=== PATIENT | female | born 2000 | race Caucasian/White ===

== ENCOUNTER → 2019-01-01 10:39 | Outpatient (CLI) | payer MEDICAID, SELFPAY ==
[2018-08-25 16:40] VITALS: BMI 26.0
--- NOTE | 2019-01-01 10:43 | CT_ITS ---
STUDY: CT MAXILLOFACIAL SINUSES REASON FOR EXAM: Female, 18 years old. Sinusitis. RADIATION DOSAGE (If Supplied By Facility): CTDIvol = ( 33.06 ) mGy, DLP = ( 817.32 ) mGycm TECHNIQUE: The patient was scanned in a multi detector CT scanner. High resolution axial imaging was performed without the administration of intravenous contrast material. Sagittal and coronal images were reconstructed. Individualized dose optimization techniques were used for this CT. COMPARISON: None. FINDINGS: FRONTAL SINUSES: Normal aeration, without mucosal inflammatory disease. ETHMOIDAL SINUSES: Normal aeration, without mucosal inflammatory disease. MAXILLARY SINUSES: Normal aeration, without mucosal inflammatory disease. SPHENOIDAL SINUSES: Normal aeration, without mucosal inflammatory disease. There is patency of the bilateral maxillary infundibuli with normal uncinate processes, ethmoid bullae, and hiatus semilunaris. Normal bilateral middle turbinates. Normal bilateral inferior turbinates. Normal midline nasal septum. There is patency of the bilateral nasal airways. The visualized osseous structures are normal. The visualized bilateral orbital contents are normal. CT/Sinus/Facial Bone IMPRESSION: Normal CT examination of the maxillofacial sinuses. Electronically Signed: Mariano Rollins, at 11:12 EDT Tel , Service support ,
== END ==
PROVIDERS: Referring Provider Otolaryngology; Visit Provider Otolaryngology
DX: J32.9 Chronic sinusitis, unspecified (principal)
CPT/HCPCS: 70486

== ENCOUNTER 2019-04-07 07:36 | Emergency (ER) | payer SELFPAY ==
[2018-08-25 16:40] VITALS: BMI 26.0
[2019-04-07 07:36] VITALS: BP 129/88; PULSE 76; RESP 14; TEMP 36.9; O2SAT 96; BMI 27.6
--- NOTE | 2019-04-07 07:46 | ED.VISSUMM ---
- ER Visit Summary Date of Service: 04/07/19 Chief Complaint: Epistaxis History of Present Illness Patient presents with right nare nosebleed that started a few days ago. She has no fever chills cough or congestion. She has a history of allergies, she constantly picks at her nose according to her mom. The bleed started about 25 minutes ago but it subsided prior to emergency department arrival. She does not feel lightheaded she does not have a history of chronic bleeding. Past medical history: Multiple nosebleeds. Seasonal allergies. Allergies reviewed unremarkable Social history unremarkable Review of systems: ENT as epistaxis as above General no fever or chills Cardiac no chest pain Respiratory no shortness of breath Skin no rash Neurological no weakness. All other systems reviewed and negative Physical Examination: Not appear in acute distress. Moist mucous membranes, right anterior nasal plexus shows diffuse punctate excoriations about 7 mm in diameter. There is no on specific spot. No C-spine tenderness supple neck. Regular rate No respiratory distress Moves all extremities without any difficulty or pain. Skin does not show any obvious rashes or lesions, no trauma. Alert no gross focal deficit Emergency Department Course and Treatment: I had a long discussion with the patient, at this time I am afraid that if I cauterize a big area it will bleed around it. She does not wish to have a nasal balloon, she stopped bleeding and is asymptomatic I believe it is reasonable to just allow her to heal on her own to use Vaseline routinely and if it bleeds again to put pressure for 15 minutes. She understands this I will discharge her in stable condition. Disposition: Discharge stable condition Impression: [Epistaxis] This note was generated with [employer] dictation software. It may contain incorrect words, spelling, and punctuation that were not noted in review of the chart prior to signing ED Disposition - Plan for ED Patient: Disposition: Home or Assisted Living Diagnosis: Epistaxis Instructions: Nosebleed Referrals: Care Physician,No Primary [Primary Care Provider] - 3-5 Days - History of Present Illness History of Present Illness: Date of Service: 04/07/19 Chief Complaint: [] History of Present Illness: The patient is a 18 F [] - Summary of Care Summary of Care: Physical Examination: [] Test Results: [] Emergency Department Course: [] Treatment Plan: [] Disposition: [] Impression: [] ER Physician Documentation Date of Service: 04/07/19 Method of Arrival: [] Chief Complaint: [] History of Present Illness: The patient is a 18 F [] Review of Systems: [] Physical Examination: [] Test Results: [] Emergency Department Course: [] Treatment Plan: [] Disposition: [] Impression: []
== END 2019-04-07 08:51 | disposition home or self-care (01) ==
LOC: ED 08:05
PROVIDERS: Emergency Provider Emergency Medicine
DX: R04.0 Epistaxis (principal)
CPT/HCPCS: 99282

== ENCOUNTER 2020-08-31 16:27 | Emergency (ER) | payer MEDICAID, SELFPAY ==
[2020-08-31 16:28] VITALS: BP 116/76; PULSE 51; RESP 17; TEMP 36; O2SAT 99; BMI 18.1
--- NOTE | 2020-08-31 16:49 | EKG12_ITS ---
Test Reason : CHEST TIGHTNESS Blood Pressure : / mmHG Vent. Rate : 043 BPM Atrial Rate : 043 BPM P-R Int : 104 ms QRS Dur : 092 ms QT Int : 454 ms P-R-T Axes : 076 077 048 degrees QTc Int : 383 ms Marked sinus bradycardia with short GA Abnormal ECG Confirmed by FRANCISCO J PINTO, MAURICE ([id number]), offline editor LISS KONG ([id number]) on 09/03/2020 10:20:50 AM Referred By: GIANA Confirmed By:MAURICE MARX MD
--- NOTE | 2020-08-31 17:10 | RAD_ITS ---
STUDY: X-RAY CHEST REASON FOR EXAM: Female, 20 years old. PT SENT TO ED BY COUNSELOR FOR EATING DISORDERS, CONCERNED FOR RECENT WEIGHT LOSS, AND TIGHTNESS IN CHEST. TECHNIQUE: Single AP portable view of the chest. COMPARISON: None. FINDINGS: The lungs are clear and expanded. There is no demonstrated pleural abnormality. Normal size heart. Normal mediastinum and laurie. Normal visualized pulmonary arteries. Normal visualized aortic arch and descending thoracic aorta. Mild dextro scoliosis lower thoracic spine. Normal visualized ribs, clavicles, and shoulders. There is no demonstrated abnormality of the visualized soft tissue structures of the upper abdomen. RAD/Chest 1 View (Portable) IMPRESSION: No active disease. Electronically Signed: Gilson Mota MD at 17:32 EST Tel , Service support ,
[2020-08-31 17:12] LABS: Absolute Lymphocyte Count 1.36 X10^3/uL (0.83-4.51); Absolute Neutrophil Count 2.2 X10^3/uL (2.0-7.7); Basophil# 0.06 X10^3/uL; Basophil% 1.5 % (0-1); Eosinophil# 0.04 X10^3/uL; Hematocrit 43.2 % (37-47); Hemoglobin 14.1 g/dL (12.0-15.0); Lymphocyte # 1.36 X10^3/ul (4.0); Lymphocyte % 33.8 % (19-41); Mean Corp Hgb Conc 32.6 g/dL (32-36); Mean Corpuscular Hgb 31.1 pg (27.0-32.0); Mean Corpuscular Volume 95.4 fL (81-99); Mean Platelet Vol. 10.1 fl (6.2-12.0); Monocyte# 0.41 X10^3/uL; Monocyte% 10.2 % (0-10); NRBC Flagged by Analyzer 0 % (0-5); Neutrophil # 2.15 X10^3/uL (2.7-7.7); Neutrophil % 53.5 % (47-70); Platelet Count 243 K/mm3 (150-450); RBC Distribution Width CV 12.2 % (11.6-14.6); RBC Distribution Width SD 43.1 fl (35.1-43.9); Red Blood Count 4.53 M/mm3 (4.2-5.4)
[2020-08-31 17:38] LABS: Internal QC Validated? YES +Cl - CLEAR BKGD; Pregnancy, Serum, hCG Quali. NEGATIVE Negative
[2020-08-31 17:40] LABS: ALB/GLOB Ratio 1.8 RATIO (0.9-2.4); AST(SGOT) 24 U/L (15-37); Alanine Aminotransfer ALT/SGPT 39 U/L (13-56); Albumin, Serum 5.3 g/dL (3.2-5.0); Alkaline Phosphatase 50 U/L (45-117); Anion Gap 6 (5-15); BUN 16 mg/dL (7-18); BUN/Creat Ratio 17.8 RATIO (10-20); Calcium,Total 9.4 mg/dL (8.5-10.1); Chloride 106 mmol/L (98-107); EST Glomerular Filtration Rate 83 mL/min (>60); Est Glom Filt Rate - Afr Amer 101 mL/min (>60); Globulin 2.9 g/dL (2.2-4.2); Glucose 80 mg/dL (74-106); Magnesium 2.2 mg/dL (1.6-2.6); Phosphorus 3.4 mg/dL (2.5-4.9); Potassium 3.7 mmol/L (3.5-5.1); Protein, Total 8.2 g/dL (6.4-8.2); Sodium Level 140 mmol/L (136-145); Thyroid Stim Hormone (TSH) 1.39 uIU/mL (0.358-3.74)
--- NOTE | 2020-08-31 17:45 | CM.ED ---
SOCIAL WORK Informant: Dr. Mccray Reason for Consult: Mental Health-Patient with eating disorder Chief Compliant: Patient sent in by counselor for medical examination due to eating disorder. Patient reports 40lbs weight loss since January 2020 and increased tightness in chest. Met with patient in room. Introduced role and reason for referral. Patient states follows with [facility] in [place], [place]. Patient reports had a 40lbs weight loss since January 2020. Patient reports history of anxiety and depression. Patient states is not currently taking medication. Patient states eats 2 meals a day and I drink a lot of coffee and energy drinks. Patient states counselor wanted her admitted to [facility] and patient refused. Patient denies any suicidal or homicidal ideation. Patient states, they wanted me checked out for medical needs. Patient with bradycardia. Patient gave permission for this worker to follow up with her mother for safety in home going. Call to patient's mother, Diamante. Mother voiced concerns for patient's health and eating disorder. Mother reports was just informed today by patient's counselor that patient was suffering from an eating disorder. Mother states patient had refused help at inpatient level at this time. Mother denies any concerns with patient returning home with family. Updated Dr. Mccray on the above. Plan: Home with follow up with counseling services that patient has already established. Sebastain Lincoln, DUAL HOSE CEMENTER, MARKETING BUSINESS ANALYST
--- NOTE | 2020-08-31 18:10 | ED.DCSUM_ITS ---
- ER Visit Summary Date of Service: 08/31/20 Chief Complaint: Anorexia History of Present Illness: The patient is a 20 F with a history of anorexia. She was for to the ED by her counselor. Patient had a 40 pound weight loss. She has not been eating or drinking much. She is using energy drinks. Her coun selor wanted her to go to [facility] but she refused. She was agreeable to coming to this facility for evaluation. Overall, she feels well. She does get some chest tightness which she attributes to anxiety. She has no other new or concerning symptoms. She denies any suicidal or homicidal thoughts. Physical Examination: Heart rate 51. Otherwise vitals unremarkable. Patient is alert and oriented. No acute distress. She is calm and cooperative. She denies suicidal or homicidal thoughts. Heart exam is bradycardic but regular. Lungs are clear. Abdomen soft. Skin appears normal. Test Results: EKG showed sinus rhythm at a rate of 43. No acute changes. White count 4.0. Otherwise CBC, CMP, troponin, hCG, TSH, mag, phos all normal. Chest x-ray reviewed by the radiologist and me, was normal. Emergency Department Course and Treatment: Patient was placed on a monitor. Work-up was unremarkable. She has bradycardia in the 40s and 50s. She denies any history of this. This was discussed with cardiology, Dr. Michel. He advised an ambulation trial. If she improved and had no symptoms, she can follow-up as an outpatient. Patient was ambulated and had a heart rate of 57. She had no dizziness, chest pain, shortness of breath, or symptoms whatsoever. We will refer her to outpatient follow-up with her primary care doctor. Patient is not suicidal or homicidal. She did speak with social work and allowed social work to speak with her mom. They concerned about the weight loss, but not concerned about her safety currently. She would like to follow-up as an outpatient for care of her anorexia. Patient was advised she can return right away if she has new or worsening symptoms, any thoughts of suicide, or any other concerns. Treatment Plan: Follow-up with counselor and primary care, return for any problems right away Disposition: Discharge Impression: Anorexia, bradycardia This note was generated with [employer] software. It may contain incorrect words, spelling, and punctuation that were not noted in review of the chart prior to signing ED Disposition - Plan for ED Patient: Referrals: SANDRA FERRARO [Other]
--- NOTE | 2020-08-31 18:14 | ED.DEP ---
ED Disposition - Plan for ED Patient: Instructions: ED Anorexia Nervosa Referrals: SANDRA FERRARO [Other] Counseling,Center [GROUP OF PHYSICIANS] -
[2020-08-31 18:31] VITALS: BP 100/73
== END 2020-08-31 18:32 | disposition home or self-care (01) ==
LOC: ED 17:16
PROVIDERS: Emergency Provider Emergency Medicine
DX: R63.0 Anorexia (principal); R00.1 Bradycardia, unspecified; R63.4 Abnormal weight loss; R07.89 Other chest pain; J45.909 Unspecified asthma, uncomplicated; Z72.0 Tobacco use
CPT/HCPCS: 71045; 80053; 83735; 84100; 84443; 84484; 84703; 85025; 93005; 99284; A4216

== ENCOUNTER 2021-03-14 10:22 | Emergency (ER) | payer MEDICAID, SELFPAY ==
[2021-03-14 10:24] VITALS: BP 113/81; PULSE 86; RESP 17; TEMP 36.5; O2SAT 98
[2021-03-14] MEDS: Mag Hydrox/Al Hydrox/Simeth 30 ML UDC PO (10:56)
--- NOTE | 2021-03-14 10:58 | EDS_ITS ---
HPI HPI - GI History of Present Illness Chief Complaint: Abd Pain Informant: patient Abdominal Pain/Flank Pain Onset: Yesterday Context: Sudden Onset Timing: Continuous Quality: Aching and Burning Location: Epigastric Current Severity: Mild Maximum Severity: Moderate Worsened by: - (Worse with palpation.) Relieved by: Nothing Nausea/Vomiting/Emesis GI Symptom: Positive for Nausea; Negative for Vomiting Onset: Yesterday Diarrhea/Melena/Hematochezia GI Symptom: Negative for Diarrhea, Melena and Hematochezia Associated Symptoms Associated Symptoms: Negative for Dysuria, Frequency, Hematuria and Urgency Narrative Narrative: Patient is a 20-year-old female presents with epigastric discomfort scribed as a dull burning sensation. Started yesterday. She denies intolerance to greasy or fried foods. She denies black or maroon stool. She denies history of reflux, hiatal hernia or peptic ulcer disease. She denies cardiac respiratory symptoms. She was seen at urgent care and sent to the emergency room because of concern for gallbladder disease. Prior similar symptoms: No Recent Illness/Hospitalization: No PFSH PFSH Medical History Asthma Back pain Benign joint hypermobility syndrome Knee pain Limb weakness Neck pain Severe headache Shoulder pain unexplained bruises Home Medications hydroxyzine pamoate [Vistaril] 25 mg PO TID PRN 03/14/21 [History Last Taken Unknown] lamotrigine [Lamictal] 150 mg PO DAILY 03/14/21 [History Last Taken Unknown] omeprazole 20 mg PO DAILY #15 capsule 03/14/21 [Rx Last Taken Unknown] Allergy/AdvReac Type Severity Reaction Status Date / Time No Known Allergies Allergy Verified 03/14/21 10:22 Family History Other Asthma Jordyn-Danlos syndrome Heart disease Surgical History History of appendectomy Social History (Updated 03/14/21 @ 10:[address] Matt Purcell MD) household members: none Smoking Status: Light Smoker (<10/day) Electronic Cigarette Use: with nicotine alcohol intake: never substance use type: does not use ROS ROS ED Constitutional Constitutional ED: Denies chills, fever(s), subjective, sweats or weight loss ENT ENT ED: Denies ear pain, rhinorrhea or sore throat Cardiovascular Cardiovascular: Denies chest pain, palpitations or racing heartbeat Respiratory/Chest Respiratory/Chest: Denies cough, dyspnea, dyspnea on exertion or sputum Gastrointestinal Gastrointestinal: Reports abdominal pain and nausea; Denies constipation, diarrhea, melena or vomiting Genitourinary Genitourinary ED: Denies dysuria, hematuria or urinary frequency Musculoskeletal Musculoskeletal: Denies arthralgias, back pain, myalgias or neck pain Integumentary Denies rash Neurologic Neurologic: Denies paresthesias or weakness EXAM Physical Exam Const Vital Signs: 03/14/21 10:24 Temperature 97.7 F L Temperature Source Temporal Pulse Rate 86 Respiratory Rate 17 Blood Pressure 113/81 H Blood Pressure Mean 91 Pulse Ox 98 Oxygen Delivery Method Room Air Positive well nourished and well developed General Appearance ED: well developed HEENT Reports moist mucous membranes normocephalic and atraumatic Eyes PERRL and EOMs intact bilaterally General Eye ED: Negative for pale conjunctiva or scleral icterus Neck no lymphadenopathy and supple Resp normal respiratory effort and clear to auscultation bilaterally Cardio regular rate, regular rhythm, S1 normal heart sound, S2 normal heart sound and no murmurs GI non-distended and no masses; Negative for non-tender Inspection: other Other Details: Negative clinical Hardin sign Auscultation: normoactive bowel sounds and hypoactive bowel sounds Palpation: soft, tender epigastric and guarding other (Epigastrium); Negative for rigid, hepatomegaly, splenomegaly or rebound tenderness present Back/Spine Lumbar Spine / Lower Back: Negative for lumbar spinal tenderness Extremity full ROM General Extremety ED: Negative for edema or tenderness General Extremity: Negative for edema Neuro CN's II-XII intact bilaterally Sensorium / Orientation: alert, oriented to person, oriented to place and oriented to time Psych mental status grossly normal and thought process normal Skin no wounds Lesions: no lesions Rashes: no rashes MDM MDM MDM Narrative Medical decision making narrative: Patient was treated with GI cocktail. Based on her history and physical there is little concern for biliary disease at this time. Patient was reassessed at 1138. She had marked improvement. She is no longer tender in the epigastric area. Discharge Plan Triage Chief Complaint: Abd Pain ED Provider: Román Purcello Dx/Rx/DC Orders Clinical Impression: Acute epigastric pain Instructions: ED Epigastric Pain Uncertain Cause Prescriptions: New omeprazole [omeprazole] 20 MG capsule 20 mg PO DAILY Qty: 15 RF: 0 No Action lamotrigine [Lamictal] 150 mg Tablet 150 mg PO DAILY RF: 0 hydroxyzine pamoate [Vistaril] 25 mg Capsule 25 mg PO TID PRN (Reason: Anxiety) RF: 0 Primary Care Provider: Aleksandr Hill NP Referrals: Aleksandr Hill NP, [employer] [Primary Care Provider] - 1-2 Weeks Disposition Disposition: Home, Self Care
[2021-03-14 12:05] VITALS: PULSE 88; RESP 16; O2SAT 98
== END 2021-03-14 12:07 | disposition home or self-care (01) ==
PROVIDERS: Emergency Provider Emergency Medicine; PCP Nurse Practitioner Primary Care
DX: R10.13 Epigastric pain (principal); J45.909 Unspecified asthma, uncomplicated; F17.200 Nicotine dependence, unspecified, uncomplicated; Z79.899 Other long term (current) drug therapy
CPT/HCPCS: 99283